=== PATIENT | female | born 1945 | race Caucasian/White ===

== ENCOUNTER 2021-01-01 11:35 | Emergency (ER) | payer MEDICARE ==
[2021-01-01] MEDS ORDERED: Sodium Chloride 0.9% 10 ML Syringe FLUSH PRN (12:16)
--- NOTE | 2021-01-01 12:22 | EDM.PDOC ---
ED HPI GENERAL MEDICAL PROBLEM - General Chief Complaint: Genitourinary Problem Stated Complaint: CHILLS Time Seen by Provider: 01/01/21 12:01 Source of Information: Reports: Patient, RN Notes Reviewed History Limitations: Reports: No Limitations - History of Present Illness INITIAL COMMENTS - FREE TEXT/NARRATIVE: Patient is a 75-year-old female who presents to the ER for evaluation of her chills. Patient had been hospitalized at [facility] in [facility], the middle of December for a pyelonephritis. Patient states that she continued 5 days of oral Augmentin after being discharged from the hospital. Patient states that she finished those antibiotics roughly 1 week ago. She states that over the last few days, she has had increased urinary frequency, dysuria, suprapubic tenderness, along with some back pain / discomfort. Patient is concerned that she may have resulting pyelonephritis again. She states she has not had any fevers at home. She is not having any sort of nausea or vomiting, she also is not complaining of any sort of diarrhea. Patient's primary care provider is Dr. Toth, that works at [facility] as well. Back Pain Score (Numeric/FACES): 5 - Related Data Allergies Allergy/AdvReac Type Severity Reaction Status Date / Time Sulfa (Sulfonamide Allergy Severe Itching Verified 01/01/21 12:07 Antibiotics) Home Meds: Home Meds Cefdinir [Omnicef] 300 mg PO BID 7 Days #14 cap 01/01/21 [Rx] ED ROS GENERAL - Review of Systems Review Of Systems: Comprehensive ROS is negative, except as noted in HPI. ED EXAM, RENAL/ - Physical Exam Exam: See Below Exam Limited By: No Limitations General Appearance: Alert, WD/WN, No Apparent Distress Respiratory/Chest: No Respiratory Distress, Lungs Clear, Normal Breath Sounds, No Accessory Muscle Use, Chest Non-Tender Cardiovascular: Normal Peripheral Pulses, Regular Rate, Rhythm, No Edema GI/Abdominal: Normal Bowel Sounds, Soft, No Distention, No Mass, Tender (suprapubic tenderness) Back Exam: Normal Inspection, CVA Tenderness (L) (very mild), CVA Tenderness (R) (very mild) Extremities: Normal Inspection, Normal Capillary Refill Neurological: Alert, Oriented, Normal Cognition, No Motor/Sensory Deficits Psychiatric: Normal Affect, Normal Mood Skin Exam: Warm, Dry, Intact, Normal Color, No Rash Course - Vital Signs Last Recorded V/S: Last Vital Signs Temp 98.2 F 01/01/21 12:01 Pulse 56 L 01/01/21 12:01 Resp 18 01/01/21 12:01 BP 145/79 H 01/01/21 12:01 Pulse Ox 97 01/01/21 12:01 - Orders/Labs/Meds Orders: Active Orders 24 hr Category Date Time Status Peripheral IV Care [RC] . DIRECTED Care 01/01/21 12:16 Active CULTURE URINE [MREF] Urgent Lab 01/01/21 12:45 Received Sodium Chloride 0.9% [Saline Flush] Med 01/01/21 12:16 Active 10 ml FLUSH ASDIRECTED PRN Peripheral IV Insertion Adult [OM.PC] Routine Oth 01/01/21 12:16 Ordered Medication Orders Sodium Chloride (Sodium Chloride 0.9% 10 Ml Syringe) 10 ml FLUSH ASDIRECTED PRN PRN Reason: Keep Vein Open Last Admin: 01/01/21 15:06 Dose: 10 ml Documented by: HERMMIC Labs: Laboratory Tests 01/01/21 01/01/21 01/01/21 Range/Units 12:45 14:05 14:05 WBC 7.99 (3.98-10.04) K/mm3 RBC 4.18 (3.98-5.22) M/mm3 Hgb 12.3 (11.2-15.7) gm/dl Hct 36.7 (34.1-44.9) % MCV 87.8 (79.4-94.8) fl MCH 29.4 (25.6-32.2) pg MCHC 33.5 (32.2-35.5) g/dl RDW Std Deviation 44.2 (36.4-46.3) fL Plt Count 291 (182-369) K/mm3 MPV 9.6 (9.4-12.3) fl Neut % (Auto) 63.3 (34.0-71.1) % Lymph % (Auto) 21.0 (19.3-51.7) % [place] % (Auto) 10.9 (4.7-12.5) % Eos % (Auto) 4.0 (0.7-5.8) Baso % (Auto) 0.4 (0.1-1.2) % Neut # (Auto) 5.06 (1.56-6.13) K/mm3 Lymph # (Auto) 1.68 (1.18-3.74) K/mm3 [place] # (Auto) 0.87 H (0.24-0.36) K/mm3 Eos # (Auto) 0.32 (0.04-0.36) K/mm3 Baso # (Auto) 0.03 (0.01-0.08) K/mm3 Sodium 134 L (136-145) mEq/L Potassium 4.1 (3.5-5.1) mEq/L Chloride 99 (98-107) mEq/L Carbon Dioxide 27 (21-32) mEq/L Anion Gap 12.1 (5-15) BUN 16 (7-18) mg/dL Creatinine 0.8 (0.55-1.02) mg/dL Est Cr Clr Drug Dosing 60.00 mL/min Estimated GFR (MDRD) > 60 (>60) mL/min BUN/Creatinine Ratio 20.0 H (14-18) Glucose 97 (70-99) mg/dL Calcium 8.4 L (8.5-10.1) mg/dL Total Bilirubin 0.4 (0.2-1.0) mg/dL AST 19 (15-37) U/L ALT 22 (14-59) U/L Alkaline Phosphatase 68 (46-116) U/L Total Protein 6.8 (6.4-8.2) g/dl Albumin 3.5 (3.4-5.0) g/dl Globulin 3.3 gm/dL Albumin/Globulin Ratio 1.1 (1-2) Urine Color [place] H (Yellow) Urine Appearance Clear (Clear) Urine pH 6.0 (5.0-8.0) Ur Specific [place] 1.020 (1.005-1.030) Urine Protein 2+ H (Negative) Urine Glucose (UA) 1+ H (Negative) Urine Ketones Trace H (Negative) Urine Occult Blood Trace-intact H (Negative) Urine Nitrite Positive H (Negative) Urine Bilirubin 1+ H (Negative) Urine Urobilinogen >=8.0 H (0.2-1.0) Ur Leukocyte Esterase 3+ H (Negative) Urine RBC 0-5 (0-5) /hpf Urine WBC 20-30 H (0-5) /hpf Ur Squamous Epith Cells 0-5 (0-5) /hpf Urine Bacteria Few (FEW) /hpf Urine Mucus Few (FEW) /hpf Meds: Medications Generic Name Dose Route Start Last Admin Trade Name Samir PRN Reason Stop Dose Admin Sodium Chloride 10 ml 01/01/21 12:16 01/01/21 15:06 Sodium Chloride 0.9% 10 Ml Syringe FLUSH 10 ml ASDIRECTED PRN Administration Keep Vein Open Discontinued Medications Generic Name Dose Route Start Last Admin Trade Name Samir PRN Reason Stop Dose Admin Ceftriaxone Sodium 2 gm/ 100 mls @ 200 mls/hr 01/01/21 13:12 01/01/21 14:10 Sodium Chloride IV 01/01/21 13:41 200 mls/hr ONETIME ONE Administration Magnesium Citrate 296 ml 01/01/21 13:18 01/01/21 14:10 Magnesium Citrate Solution 296 Ml Bottle PO 01/01/21 13:19 296 ml ONETIME ONE Administration - Re-Assessments/Exams Free Text/Narrative Re-Assessment/Exam: 01/01/21 12:21 Patient presents to the ER for evaluation of her chills and UTI-like symptoms. We will go ahead get a urinalysis, basic labs get IV established in case we would need to give her a dose of IV antibiotics, and get abdomen pelvis CT without oral contrast for further evaluation of possible pyelonephritis. 01/01/21 13:17 CT demonstrates no obvious sign of any sort of pyelonephritis. There is some cholelithiasis without cholecystitis. And a fair amount of constipation, otherwise no acute abnormalities were appreciated. Patient's urine has resulted, and she did take 1 dose of Azo earlier today, patient's nitrites are positive, but she also does have 3+ leukocyte Estrace in her urine. We will go ahead and do 2 g Rocephin for initial management. Urine culture has been ordered as well. 01/01/21 15:53 Patient CMP is unremarkable. 01/01/21 16:08 Patient was reassessed at bedside, we will go ahead and get her discharged at this time. Departure - Departure Time of Disposition: 16:09 Disposition: Home, Self-Care 01 Condition: Good Clinical Impression: UTI, Urinary tract infectious disease - Discharge Information *PRESCRIPTION DRUG MONITORING PROGRAM REVIEWED*: No *COPY OF PRESCRIPTION DRUG MONITORING REPORT IN PATIENT KATE: No Prescriptions: Cefdinir [Omnicef] 300 mg PO BID 7 Days #14 cap Instructions: Urinary Tract Infection, Adult, [id number] Referrals: Kvng Toth MD [Primary Care Provider] - Forms: ED Department Discharge Additional Instructions: You have been evaluated in the ED for your urinary symptoms. You were given a dose of IV antibiotics in the ER, to jumpstart your course of antibiotics for UTI. This should start providing relief in about 24 hours. Your urinalysis was consistent with an acute urinary tract infection. Your urine was sent for culture, and you will be notified if you should need a change in your antibiotic. This may take up to 48 hours to result. You may take AZO for urinary pain relief. This medication can be taken 3 times a day for no longer than 3 days at a time. This is available over the counter, and can be attained at any retail store like [employer] or any pharmacy. Please be aware that this medication will make your urine turn orange. You have been given a prescription for Omnicef (cefdinir), 300 mg 1 tablet 2 times a day for 7 days. Please note that the antibiotics can take up to 48 hours to start working. This medication was electronically sent to the [place] pharmacy located in the [employer] grocery store. Your CT done at today's visit showed no sign of a kidney infection or pyelonephritis. Laboratory evaluation was also within normal limits. Your CT also demonstrated that you had quite a bit of stool throughout your entire colon, you have been given a bottle of magnesium citrate you may take one half bottle if you do not have a rather large bowel movement in 3 to 4 hours, you may repeat the last half bottle. Please increase your oral fluid intake and try to stay adequately hydrated. I would recommend that you get a hold of your regular care provider on Monday, to suggest a possible urology referral due to your ongoing issues with recurrent UTIs. Please return to the ED if your symptoms change or worsen. Sepsis Event Note (ED) - Evaluation Sepsis Screening Result: No Definite Risk - Focused Exam Vital Signs: Vital Signs Temp Pulse Resp BP Pulse Ox 01/01/21 12:01 98.2 F 56 L 18 145/79 H 97 - My Orders Last 24 Hours: My Active Orders 01/01/21 12:16 Peripheral IV Care [RC] . DIRECTED Sodium Chloride 0.9% [Saline Flush] 10 ml FLUSH ASDIRECTED PRN Peripheral IV Insertion Adult [OM.PC] Routine 01/01/21 12:45 CULTURE URINE [MREF] Urgent - Assessment/Plan Last 24 Hours: My Active Orders 01/01/21 12:16 Peripheral IV Care [RC] . DIRECTED Sodium Chloride 0.9% [Saline Flush] 10 ml FLUSH ASDIRECTED PRN Peripheral IV Insertion Adult [OM.PC] Routine 01/01/21 12:45 CULTURE URINE [MREF] Urgent
[2021-01-01] MEDS ORDERED: cefTRIAXone 2 GM in Sodium Chloride 0.9% 100 ML IV ONE (13:12)
[2021-01-01] MEDS ORDERED: Magnesium Citrate Solution 296 ML Bottle PO ONE (13:18)
--- NOTE | 2021-01-01 14:53 | CT ---
CT abdomen and pelvis (without contrast) Technique: Multiple axial sections were obtained from above the dome of the diaphragm inferiorly through the pubic symphysis. Intravenous and oral contrast were not utilized. Reconstructed coronal and sagittal images were also obtained. Findings: Visualized lung bases show nothing acute. 6 mm cyst is noted within the posterior right lobe of the liver. Spleen size is normal. Adrenal glands show no nodule. Gallbladder shows layering gallstones. Pancreas shows no discrete abnormality. Right kidney shows a small cyst measuring 1.5 cm. Kidneys show no abnormal calcifications. No ureteral dilatation or ureteral stone is seen. Abdominal aorta shows atherosclerotic calcification which continues into the iliac veins. Right common iliac artery is mildly ectatic with AP dimension of about 1.6 cm. Prior hysterectomy is noted. Increased stool is seen throughout the colon. Artifact is noted within the pelvis secondary to left hip prosthesis. Degenerative change is seen within the lumbar spine at L4-5 with vacuum phenomena. Degenerative apophyseal change is seen within the lower apophyseal joints within the lumbar spine. Diffuse osteoporosis is seen within the osseous structures. Impression: 1. Diffuse increased stool throughout the colon. 2. Cholelithiasis. 3. Other findings as noted above which are believed to be chronic. Diagnostic code #2 I agree with preliminary report from [facility], finalized on 01/01/21, 2:06 PM CDT, code 1
== END 2021-01-01 16:49 | disposition home or self-care (01) ==
LOC: JD.ED 11:35
DX: N39.0 Urinary tract infection, site not specified (principal); Z88.2 Allergy status to sulfonamides
CPT/HCPCS: 36415; 74176; 80053; 81001; 85025; 87086; 87088; 87186; 96365; 99284; A9270; J0696